=== PATIENT | female | born 1980 | race Caucasian/White ===

== ENCOUNTER 2016-09-08 01:11 | Emergency (ER) | payer OTHER ==
[~2016-09-08] VITALS: Ht 162.6 cm; Wt 101.5 kg
[2016-09-08 01:32] VITALS: Ht 162.6 cm; Wt 101.5 kg
[2016-09-08] MEDS ORDERED: ACET500C5 PO (02:00)
[2016-09-08] MEDS ORDERED: CLIN-73 PO (02:00)
[2016-09-08] MEDS ORDERED: CLINDAMYCIN 300 MG INJ IM ONE (02:00)
[2016-09-08] MEDS ORDERED: ACETAMINOPHEN 325 MG TAB PO ONE (02:00)
[2016-09-08] MEDS ORDERED: IBUP-1542 PO (02:00)
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
[2016-09-08 03:12] VITALS: BP 127/67; PULSE 86; RESP 20; TEMP 98.1
== END 2016-09-08 03:13 | disposition home or self-care (01) ==
LOC: FTE 01:11
DX: L03.115 Cellulitis of right lower limb (principal)
CPT/HCPCS: 96372